=== PATIENT | female | born 1995 | race Two or more races ===

== ENCOUNTER 2023-04-13 21:34 | Inpatient (IN) | payer OTHER ==
[~2023-04-13] VITALS: Ht 177.8 cm; Wt 2.3 kg
[2023-04-13] MEDS ORDERED: PRENATAL TABLE1 EAC1 PO (22:14)
== END 2023-04-16 18:44 | disposition home or self-care (01) | DRG 788 ==
LOC: LDR 21:34 → O/R 04-14 19:54 → OB/GYN 04-14 22:46
PROVIDERS: ADMIT Obstetrics & Gynecology; ATTEND Obstetrics & Gynecology
PROC: 3E0P7VZ Introduction of Hormone into Female Reproductive, Via Natural or Artificial Opening (ICD-10-PCS; 2023-04-13)
PROC: 4A1HXCZ Monitoring of Products of Conception, Cardiac Rate, External Approach (ICD-10-PCS; 2023-04-13)
PROC: 3E033VJ Introduction of Other Hormone into Peripheral Vein, Percutaneous Approach (ICD-10-PCS; 2023-04-14)
PROC: 10D00Z1 Extraction of Products of Conception, Low, Open Approach (ICD-10-PCS; principal; 2023-04-14 19:00)
DX: O36.5930 Maternal care for other known or suspected poor fetal growth, third trimester, not applicable or unspecified (principal); O62.0 Primary inadequate contractions; Z3A.36 36 weeks gestation of pregnancy; Z37.0 Single live birth; Z20.822 Contact with and (suspected) exposure to COVID-19